=== PATIENT | female | born 1945 | race Caucasian/White ===

== ENCOUNTER 2023-09-23 11:48 | Emergency (ER) | payer MEDICARE, OTHER, SELFPAY ==
[2023-09-23 12:01] VITALS: BP 205/108
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
[2023-09-23 12:45] VITALS: BP 184/76
[2023-09-23 12:54] LABS: % Basophils 0.5 % (0-2); % Eosinophils 0.7 % (0-6); % Immature Granulocytes 0.3 % (0-0.5); % Lymphocytes 18.8 % (20.5-51.1); % Monocytes 9.8 % (1.7-9.3); % Neutrophils 69.9 % (42.2-75.2); Absolute Eosinophils 0.1 10^3/uL (0-0.7); Absolute Lymphocytes 1.6 10^3/uL (1.2-3.4); Absolute Monocytes 0.9 10^3/uL (0.1-0.6); Absolute Neutrophils 6.1 10^3/uL (1.4-6.5); Hematocrit 39.4 % (37.0-47.0); Hemoglobin 13.7 g/dL (12.0-16.0); Mean Corp Hgb Conc. 34.8 g/dL (33.0-37.0); Mean Corpuscular Hgb 31.6 pg (27.0-31.0); Mean Platelet Volume 11.4 fL (7.4-10.4); Nucleated Red Blood Cells % 0 %; Platelet Count 277 10^3/uL (130-400); Red Blood Cell Count 4.33 10^6/uL (4.20-5.40); Red Cell Dist. Width 12.7 % (11.5-14.5); White Blood Cell Count 8.7 10^3/uL (4.8-10.8)
[2023-09-23 12:55] VITALS: BP 178/88
[2023-09-23] MEDS: APRESOLINE 10 MG IV (12:57)
[2023-09-23 13:00] VITALS: BP 171/78
[2023-09-23 13:35] LABS: Blood Urea Nitrogen 19 mg/dl (7-17); Calcium 10.2 mg/dl (8.4-10.2); Carbon Dioxide 24 mmol/L (22-30); Chloride 103 mmol/L (98-107); Glucose 106 mg/dl (70-99); Sodium 139 mmol/L (135-145); eGFR > 60.00
[2023-09-23 14:00] VITALS: BP 141/80
== END 2023-09-23 14:17 | disposition home or self-care (01) ==
LOC: EMR 11:48
PROVIDERS: EMERGENCY PHYSICIAN Emergency Medicine; FAMILY PHYSICIAN Family Medicine
DX: I10 Essential (primary) hypertension (principal); R20.2 Paresthesia of skin; E78.00 Pure hypercholesterolemia, unspecified; Z79.899 Other long term (current) drug therapy; Z79.82 Long term (current) use of aspirin; Z88.0 Allergy status to penicillin
CPT/HCPCS: 99284; 96374; 80048; 85025

== ENCOUNTER 2023-10-08 13:48 | Emergency (ER) | payer MEDICARE, OTHER, SELFPAY ==
[2023-10-08 14:04] VITALS: BP 223/119
[2023-10-08 14:33] LABS: % Basophils 0.5 % (0-2); % Eosinophils 0.4 % (0-6); % Immature Granulocytes 0.3 % (0-0.5); % Lymphocytes 11.4 % (20.5-51.1); % Monocytes 7.3 % (1.7-9.3); % Neutrophils 80.1 % (42.2-75.2); Absolute Basophils 0.1 10^3/uL (0-0.2); Absolute Lymphocytes 1.2 10^3/uL (1.2-3.4); Absolute Monocytes 0.8 10^3/uL (0.1-0.6); Absolute Neutrophils 8.4 10^3/uL (1.4-6.5); Hematocrit 39.4 % (37.0-47.0); Hemoglobin 13.7 g/dL (12.0-16.0); Mean Corp Hgb Conc. 34.8 g/dL (33.0-37.0); Mean Corpuscular Volume 92.1 fL (81.0-99.0); Mean Platelet Volume 11.2 fL (7.4-10.4); Nucleated Red Blood Cells % 0 %; Platelet Count 258 10^3/uL (130-400); Red Blood Cell Count 4.28 10^6/uL (4.20-5.40); Red Cell Dist. Width 12.8 % (11.5-14.5); White Blood Cell Count 10.4 10^3/uL (4.8-10.8)
[2023-10-08 15:05] LABS: ALT (SGPT) 20 U/L (0-35); AST (SGOT) 25 U/L (14-36); Albumin 4.8 g/dl (3.5-5.0); Alkaline Phosphatase 73 U/L (38-126); Blood Urea Nitrogen 18 mg/dl (7-17); Calcium 10.2 mg/dl (8.4-10.2); Carbon Dioxide 24 mmol/L (22-30); Chloride 105 mmol/L (98-107); Glucose 104 mg/dl (70-99); Potassium 4.3 mmol/L (3.5-5.1); Sodium 137 mmol/L (135-145); Total Bilirubin 0.6 mg/dl (0.2-1.3); Total Protein 7.6 g/dl (6.3-8.2); eGFR > 60.00
[2023-10-08 15:14] LABS: Troponin I < 0.012 ng/ml
[2023-10-08 15:54] VITALS: BP 212/115
[2023-10-08 16:41] VITALS: BMI 21.2
[2023-10-08 16:46] VITALS: BP 198/80
--- NOTE | 2023-10-08 16:48 | ED.GENMED ---
History of Present Illness
<Yuli Holley PA-C - Last Filed: 10/08/23 19:46>
General
Chief Complaint: Blood Pressure Problem
Source: patient
Exam Limitations: none
Time Seen by Provider: 10/08/23 16:47
Nursing documentation reviewed up to this point in time: agreed with
Travel History
Have you had any contact with someone who has COVID-19?: No
Do you have any symptoms of coronavirus? Fever > 100 degrees, chills, cough, shortness of breath, sore throat, loss of taste or smell, muscle aches, or headache?: No
History of Present Illness
History of Present Illness:
78 y/o female with PMH of HTN who presents to the emergency department today with concerns of high blood pressure. Patient states that she had a systolic blood pressure of 200 at home, and so she called her cardiology office. The nurse in the
patient's cardiology office advised she report to the emergency department. Patient states that she has no medical history except for high blood pressure. Patient states that she started having problems with her blood pressure in April 2023.
Patient saw her primary provider who referred her to a care support representative. Patient was started on enalapril 5 mg p.o. daily and is currently on 10 mg of enalapril twice daily, as well as hydralazine 25 mg 3 times day, however she recently stopped the
hydralazine around a week and a half ago after experience adverse side effects such as flushing, and paresthesias. When patient noticed her high blood pressure this morning, she took 210 mg tablets of hydralazine. Patient currently denies chest
pain, shortness of breath, headache, dizziness, lightheadedness. Patient states that they have been having a hard time getting her blood pressure under control.
Past History
<Yuli Holley PA-C - Last Filed: 10/08/23 19:46>
Past History
ED Past Medical History: Hypercholesterolemia; Negative HTN
Social History
Tobacco: Non-smoker
Alcohol: None
Drug: None
Personal:
Living: with family
Employment: Retired
Family History
Family History: Hypertension
Review of Systems
<Yuli Holley PA-C - Last Filed: 10/08/23 19:46>
Review of Systems
All Other Systems: ROS reviewed and negative except as documented in HPI and ROS
Phy Exam
<Yuli Holley PA-C - Last Filed: 10/08/23 19:46>
Physical Exam
Physical Exam:
Vitals: Patient is hypertensive to 198/86.
General: Patient is well-appearing and in no acute distress..
Skin: Skin is warm and dry, no rashes or lesions.
Head: Normocephalic, atraumatic.
Cardiac: Regular rate and rhythm, no murmurs.
Peripheral Vascular: 2+ dorsalis pedis pulses b/l, no lower extremity swelling.
Pulm: Normal respiratory effort, no wheezes, rales, or rhonchi.
Abdomen: No abdominal tenderness.
Neuro: AAOx3. CN II-XII intact. No focal neurologic deficits.
Course
<Yuli Holley PA-C - Last Filed: 10/08/23 19:46>
Orders/Labs/Results
Orders:
Orders
10/08/23 14:10
Electrocardiogram (*1) Urgent
Reason for Study: Hypertension, Benign
EKG- Treatment ONCE
10/08/23 14:24
Complete Blood Count/With Diff Urgent
Comprehensive Metabolic Panel Urgent
Troponin I Urgent
Abnormal Lab Results
10/08/23
14:24
MCH 32.0 H pg
(27.0-31.0)
MPV 11.2 H fL
(7.4-10.4)
Absolute Neuts (auto) 8.4 H 10^3/uL
(1.4-6.5)
Absolute Monos (auto) 0.8 H 10^3/uL
(0.1-0.6)
Neutrophils % 80.1 H %
(42.2-75.2)
Lymphocytes % 11.4 L %
(20.5-51.1)
BUN 18 H mg/dl
(7-17)
Glucose 104 H mg/dl
(70-99)
10/08/23 14:24
10/08/23 14:24
Vital Signs
Initial and Last Documented VS:
Initial Vital Signs
Temp Pulse Resp BP Pulse Ox
98.6 F 71 18 223/119 99
10/08/23 14:04 10/08/23 14:04 10/08/23 14:04 10/08/23 14:04 10/08/23 14:04
Last Documented Vital Signs
Temp Pulse Resp BP Pulse Ox
98.6 F 65 16 198/86 99
10/08/23 14:04 10/08/23 17:15 10/08/23 17:15 10/08/23 17:00 10/08/23 17:15
Marcelinalt;Raul Badillo, DO - Last Filed: 10/08/23 17:36>
Orders/Labs/Results
Orders:
Orders
10/08/23 14:10
Electrocardiogram (*1) Urgent
Reason for Study: Hypertension, Benign
EKG- Treatment ONCE
10/08/23 14:24
Complete Blood Count/With Diff Urgent
Comprehensive Metabolic Panel Urgent
Troponin I Urgent
Abnormal Lab Results
10/08/23
14:24
MCH 32.0 H pg
(27.0-31.0)
MPV 11.2 H fL
(7.4-10.4)
Absolute Neuts (auto) 8.4 H 10^3/uL
(1.4-6.5)
Absolute Monos (auto) 0.8 H 10^3/uL
(0.1-0.6)
Neutrophils % 80.1 H %
(42.2-75.2)
Lymphocytes % 11.4 L %
(20.5-51.1)
BUN 18 H mg/dl
(7-17)
Glucose 104 H mg/dl
(70-99)
10/08/23 14:24
10/08/23 14:24
Vital Signs
Initial and Last Documented VS:
Initial Vital Signs
Temp Pulse Resp BP Pulse Ox
98.6 F 71 18 223/119 99
10/08/23 14:04 10/08/23 14:04 10/08/23 14:04 10/08/23 14:04 10/08/23 14:04
Last Documented Vital Signs
Temp Pulse Resp BP Pulse Ox
98.6 F 65 16 198/86 99
10/08/23 14:04 10/08/23 17:15 10/08/23 17:15 10/08/23 17:00 10/08/23 17:15
<Yuli Holley PA-C - Last Filed: 10/08/23 19:46>
MDM/Problems Addressed
Differential Diagnosis Includes:
ddx include essential hypertension, hyperthyroidism, poor diet, obstructive sleep apnea, renal artery stenosis
MDM/Problems Addressed:
high blood pressure
Chronic conditions affecting care: HTN
Acute Exacerbation and/or Progression of Chronic Illness: HTN
<Yuli Holley PA-C - Last Filed: 10/08/23 19:46>
*Pulse Oximetry
Patient hypoxic: no
*Critical Care Note
Total Time (30-74mins, 75-104mins- exclusive of procedures): Not Applicable
<Yuli Holley PA-C - Last Filed: 10/08/23 19:46>
Patient Management
Escalation/DeEscalation of care consider admission/obs:
78 y/o female with PMH of HTN who presents to the emergency department today with concerns of high blood pressure. Patient states that she had a systolic blood pressure of 200 at home, and so she called her cardiology office. The nurse in the
patient's cardiology office advised she report to the emergency department. Patient struggled with high blood pressure, and has had trouble controlling it for the past few months. Patient currently takes enalapril 10 mg twice daily, and she takes
hydralazine as needed but does not take it daily as prescribed due to side effects. Patient states that she is going to call her care support representative tomorrow to update him on dosing and will schedule follow-up appointment. We advised patient to increase
her dose of enalapril to 20 mg twice daily. Patient 20 mg follows her pharmacy. Patient aware of plan. No indication for acute lowering of blood pressure at this time due to lack of symptoms, lack of signs of end organ damage. Patient medically
stable for discharge.
ED Attending Note
<Yuli Hloley PA-C - Last Filed: 10/08/23 19:46>
-
Portions of this chart may have been created with voice recognition software.� Occasional wrong word or��sound alike� substitutions may have occurred due to the inherent limitations of voice recognition software.
<Raul Badillo DO - Last Filed: 10/08/23 17:36>
ED Attending Note
Patient seen and examined by attending physician: Yes
I performed the substantive portion of visit, reviewed & personally made and approve the management plan that is documented in note by myself or NO.: Yes
ED Attending Note:
Seen with PA examined independently
5 months several ER visits PCP visits cardiology visits started on sertraline 25 3 times daily of hydralazine recently states she had side effects, she restarted hydralazine 10 3 times daily looks okay here, encouraged her to follow-up with her
outpatient physicians consideration for pushing up her PATRICK inhibitor
Discharge Plan
Departure
Patient Disposition: Home (Routine Discharge)
Date of Disposition: 10/08/23
Time of Disposition: 17:48
Patient with high blood pressure during this ER visit?: Yes
Condition: Good
Discharge Problem:
Hypertension
Instructions: High Blood Pressure (DC), BLOOD PRESSURE
Prescriptions:
New
enalapril maleate 20 mg tablet
20 mg PO BID Qty: 30 0RF
No Action
aspirin 81 mg Tablet,Delayed Release (Dr/Ec)
81 mg PO DAILY
simvastatin 20 mg Tablet
20 mg PO QPM
magnesium oxide 500 mg Tablet
500 mg PO DAILY
cholecalciferol (vitamin D3) [Vitamin D3] 25 mcg (1,000 unit) Tablet
25 mcg PO DAILY
guaifenesin [Mucinex] 600 mg Tablet Extended Release 12hr
600 mg PO BID
enalapril maleate 5 mg tablet
5 mg PO DAILY Qty: 60 2RF
Activity Restrictions/Additional Instructions:
We have sent increased dose of enalapril to your pharmacy. Please take one 20 mg tablet twice daily. Please call your care support representative tomorrow to schedule a follow up appointment and update him on the increased dose.
Please return to the emergency department should you experience headache, chest pain, shortness of breath, confusion, motor weakness, lightheadedness, dizziness, or other concerning signs or symptoms.
Please follow up with your primary care provider.
Interventions
Interventions:
*Risk Screen - Suicide Last Done: 10/08/23 14:04
*General Assessment Last Done: 10/08/23 14:04
*Neglect/Abuse Screening Last Done: 10/08/23 14:04
ED- Fall Risk Assessment Last Done: 10/08/23 16:46
*ED COVID-19 Vaccine History Last Done: 10/08/23 16:46
*Nursing Disposition Last Done: 10/08/23 18:04
ED- Cardiac Assessment Last Done: 10/08/23 16:46
ED- Neurological Assessment Last Done: 10/08/23 16:46
ED- Pulmonary Assessment Last Done: 10/08/23 16:46
Discharge Date and Time
Discharge Date/Time: 10/08/23 18:07
Print Language: YORUBA
--- NOTE | 2023-10-08 16:56 | EDRN ---
Marquise Holley PA in room w/pt at this time.
[2023-10-08 17:00] VITALS: BP 198/86
--- NOTE | 2023-10-08 17:29 | EDRN ---
Dr. Badillo in room w/pt at this time.
== END 2023-10-08 18:07 | disposition home or self-care (01) ==
LOC: EMR 13:48
PROVIDERS: Emergency Medicine; EMERGENCY PHYSICIAN Emergency Medicine; FAMILY PHYSICIAN Family Medicine
DX: I10 Essential (primary) hypertension (principal)
CPT/HCPCS: 99284; 80053; 84484; 85025; 93005